=== PATIENT | male | born 1935 | race Caucasian/White ===

== ENCOUNTER 2016-08-03 08:11 | Emergency (ER) | payer MEDICARE, OTHER ==
[~2016-08-03] VITALS: Ht 177.8 cm; Wt 56.8 kg
[~2016-08-03 08:11] MED LIST: FLUT1DIS5; HYDR-4003 PO; IPRA4AER INH; MAGN800O PO; METF500T7 PO; POLY17PO6 PO; RIVA10TA PO; SENN-133 PO; Senna/Docusate Sodium PO
[2016-08-03 08:15] VITALS: BP 130/71; PULSE 100; RESP 16; O2SAT 97
[2016-08-03] MEDS ORDERED: HYDROcodone-APAP 5-325 mg Tablet PO ONE (08:55)
--- NOTE | 2016-08-03 09:09 | ED.REPORT ---
HPI-Extremity Problem Upper Date of Service Aug 03, 2016 ED Provider: Mian Shaver MD The patient is an 81 year old male who was brought to the emergency department by EMS for left shoulder pain. The patient slipped and fell last night, landing on his left side, injuring his left shoulder. He took some leftover hydrocodone with some relief. He did not hit his head or lose consciousness. He denies numbness or weakness. He did not experience chest pain, shortness of breath, dizziness, or lightheadedness. Nursing Notes Stated Complaint: L SHOULDER PAIN Chief Complaint: Extremity Trauma Nursing Notes Reviewed: Yes Allergies: Coded Allergies: No Known Allergies (Unverified , 03/24/16) Scheduled ([Senna/Docusate Sodium]) 1 TABLET TABLET 1 TABLET PO BID Fluticasone/Salmeterol (Advair 500-50 Diskus) 1 Each Disk.w.dev 1 PUFF BID Metformin ER (Metformin ER) 500 Mg Tablet 500 MG PO HS Rivaroxaban (Xarelto) 10 Mg Tablet 10 MG PO DAILYWM Scheduled PRN Albuterol/Ipratropium (Combivent Respimat Inhal [place]) 120 Spr/4 Gm Inhaler 2 PUFFS INH Q4H PRN PRN For Shortness of Breath Hydrocodone-Acetaminophen 5-325 mg (Hydrocodone-Acetaminophen 5-325 mg) 1 Each Tablet 1-2 TABLET PO Q4H PRN PRN For Moderate Pain Hydrocodone-Acetaminophen 5-325 mg (Hydrocodone-Acetaminophen 5-325 mg) 1 Each Tablet 1-2 TABLET PO QID PRN PRN For Pain Magnesium Hydroxide (Milk of Magnesia) 2,400 Mg/10 Ml Oral.susp 10 ML PO HS PRN PRN For Constipation Polyethylene Glycol 3350 (Miralax) 17 Gm Powd.pack 17 GM PO DAILY PRN PRN For Constipation Sennosides (Senna) 8.6 Mg Tablet 17.2 MG PO BID PRN PRN For Constipation General Time Seen by MD: 09:08 Chief Complaint Shoulder injury left Hx Obtained From: Patient, EMS Arrived By: Ambulance Onset Occurred: 9 - 12 hours ago Symptom Duration: Since onset Caused by: Fall on ground Location: : Shoulder left Quality: Painful Severity: Current: Severe Severity: Maximum: Severe Associated with: Denies: Loss of consciousness, Numb extremities, Weakness Pertinent Negative: Pt denies other symptoms Recent Healthcare: No recent doctor visit, No recent hospitalization Similar Sx Previous: No Past Medical History Past Medical History Reports: COPD, Diabetes mellitus Past Surgical History Hip replacement Family History Noncontributory Smoking History Former Smoker, Unknown if Ever Smoker Social History Other Social History: Good social support, , Local resident Ambulatory Status Independent Review of Systems Musculoskeletal: Reports: Joint pain, Joint swelling, Denies: Back pain, Neck pain Skin: Reports Bruising Neurologic: Denies: Change LOC, Dizziness, Headache, Lightheaded Complete sys rev & neg: except as marked. Respiratory: Denies: Shortness of breath Cardiovascular: Denies: Chest pain Physical Exam Initial Vital Signs Vital Signs (First) Date Time Temp Pulse Resp B/P Pulse Ox O2 Delivery O2 Flow Rate FiO2 08/03/16 08:15 37.1 100 16 130/71 97 Room Air Initial VS: Reviewed Head / Eyes: Atraumatic, Normocephalic, PERRL ENT: Mucous membranes moist, Conjunctiva normal, No scleral icterus Neck: Supple, Non-tender, Full range of motion Respiratory: Breath sounds normal, Clear to auscultation, No respiratory distress Cardiovascular: Regular rate & rhythm, Heart sounds normal, Intact distal pulses Abdomen / GI: Soft, Non-tender, No guarding, No rebound, No distention Lymphatic: No lymphadenopathy Lower Extremities: Vascular intact, Neuro intact, No swelling, No tenderness Skin: Warm, Dry, No cyanosis Neurologic: Alert, Oriented, Nonfocal Psychiatric: Mood/affect normal, Behavior normal, Normal thought content General/Constitutional: Awake, Alert, Well appearing Upper Extremity / MS: Neurologic intact, Vascular intact Tenderness, swelling, and ecchymosis to the proximal left humerus. He has intact sensation over the deltoid. He is distally neurovascularly intact. Interpretation & Diagnostics X-Ray Interpretation Xray Interpretation: Proximal humerus fracture X-Ray Ordered: Shoulder left Interpretation / Wet Read by: Wet read ED physician Re-Eval/Medical Decision Med Decision/Clinical Course Isolated proximal humerus fracture, placed in a sling, pain well controlled in the ER. No other identifiable injuries based on physical exam and history, patient feels comfortable going home. Asked on more than one occasion regarding safety at home and he feels comfortable. Will follow up with his orthopedic surgeon in approximately 1 week. Effort prescribed. Return precautions given. Source of Hx: Old records, EMS Re-Evaluation/Progress : Time of Eval: 09:18 Re-Evaluation/Progress Note: Discussed results, diagnosis, and plan for discharge. All questions were addressed. Counseled Regarding: Diagnosis, Need for follow-up, When/why to return to ED Discharge & Departure Impression: Primary Impression: Left humeral fracture Encounter type: initial encounter Humerus Location: proximal Fracture type : closed Fracture morphology: other fracture Fracture alignment: nondisplaced Qualified Code: S42.295A - Other nondisplaced fracture of upper end of left humerus, initial encounter for closed fracture Disposition: Home Discharge Condition All VS Reviewed: Yes Condition: Stable Additional Instructions: Thank you for entrusting us with your care today. Your x-ray does abdifatah evidence of a humeral fracture. You will need to followup with an orthopedist. You can see Dr. Geiger who you have seen in the past. Wear the sling until you are seen by an orthopedist. Return for any new or concerning symptoms. Referrals: [facility] (PCP) William Geiger MD Attestation Portions of this note were transcribed by Nydia Armsa. I, Dr. Bobby personally performed the history, physical exam and medical decision-making; I reviewed and confirmed the accuracy of the information in the transcribed note. Signed by: Johanne Rivero, 08/03/2016 and 09. copies to: [facility]; William Geiger MD, Timothy Serjio RIOS Aug 03, 2016 09:09 Nydia Armas Aug 03, 2016 09:17
[2016-08-03] MEDS ORDERED: HYDR-4003 PO (09:18)
--- NOTE | 2016-08-03 09:26 | DRSVH ---
PROCEDURE: X-RAY LEFT SHOULDER, MINIMUM TWO VIEWS ([id number]) INDICATIONS: trauma TECHNIQUE: 3 views of the shoulder were acquired. COMPARISON: None. FINDINGS: Bones: There is a comminuted fracture of the left humeral head and neck with impaction and superior d isplacement of the humeral shaft. No suspicious bony lesions. Visualized ribs appear intact. Soft tissues: No suspicious soft tissue calcifications. IMPRESSION: Comminuted left humeral head and neck fracture. Dictated by: Dat Dejesus M.D. on 08/03/2016 at 9:22 Approved by: Dat Dejesus M.D. on 08/03/2016 at 9:25
== END 2016-08-03 09:48 | disposition home or self-care (01) ==
LOC: SED 08:11
DX: S42.295A Other nondisplaced fracture of upper end of left humerus, initial encounter for closed fracture (principal); W01.0XXA Fall on same level from slipping, tripping and stumbling without subsequent striking against object, initial encounter; Y93.89 Activity, other specified; Y92.009 Unspecified place in unspecified non-institutional (private) residence as the place of occurrence of the external cause; Y99.8 Other external cause status; J44.9 Chronic obstructive pulmonary disease, unspecified; E11.9 Type 2 diabetes mellitus without complications; Z79.84 Long term (current) use of oral hypoglycemic drugs; Z87.891 Personal history of nicotine dependence